=== PATIENT | male | born 1935 | race Caucasian/White ===

== ENCOUNTER 2021-09-12 10:40 | Emergency (ER) | payer MEDICARE ==
[~2021-09-12 10:40] MED LIST: Sodium Chloride 0.9% 1,000 ML BAG ONE
[2021-09-12] MEDS ORDERED: Sodium Chloride 0.9% 1,000 ML BAG ONE (11:33)
[2021-09-12 11:36] LABS: #Basophils 0.1 thou/uL (0.0-0.2); #Eosinphils 0.1 thou/uL (0.0-0.7); #Lymphocytes 0.8 thou/uL (1.20-3.40); #Monocytes 0.9 thou/uL (0.11-0.59); #Neutrophils 9.1 thou/uL (1.40-6.50); %Basophils 0.6 % (0.0-1.0); %Monocytes 7.5 % (0.0-10.0); %Neutrophils 84.9 % (42.0-75.0); Hemoglobin 14.4 g/dL (14.0-18.0); Mean Corpuscular HGB CONC 31.3 g/dL (32.0-36.0); Mean Corpuscular Hemoglobin 30.4 pg (27.0-31.0); Mean Platelet Volume 9.6 fL (7.4-10.4); Platelet Count 141 thou/uL (130-400); RBC Distribution Width 14.8 % (11.5-14.5); Red Blood Cell (RBC) Count 4.74 mill/uL (4.70-6.10); White Blood Cell (WBC) Count 10.7 thou/uL (4.8-10.8)
[2021-09-12 11:45] LABS: AST (SGOT) 57 U/L (5-34); Albumin 3.8 g/dL (3.4-4.8); Alkaline Phosphatase 98 U/L (40-110); Anion Gap 20 mmol/L (10-20); BUN (Urea Nitrogen) 32 mg/dL (8.4-25.7); Bilirubin, Total 1.5 mg/dL (0.2-1.2); Calc. Creatinine Clearance 0 mL/min (70-130); Calcium 9.3 mg/dL (7.8-10.44); Carbon Dioxide 21 mmol/L (23-31); Chloride 99 mmol/L (98-107); Glucose 116 mg/dL (83-110); Potassium 5.1 mmol/L (3.5-5.1); Protein, Total 7.8 g/dL (5.8-8.1); Sodium 135 mmol/L (136-145)
[2021-09-12 11:48] LABS: ALT (SGPT) 30 U/L (8-55)
[2021-09-12] MEDS ORDERED: Sodium Chloride 0.9% 100 ML ONE (12:11)
[2021-09-12] MEDS ORDERED: cefTRIAXone\\ROCEPHIN 2 GM VIAL ONE (12:11)
[2021-09-12] MEDS ORDERED: Sodium Chloride 0.9% 250 ML 250 ML ONE (12:25)
[2021-09-12] MEDS ORDERED: Azithromycin 500 MG VIAL ONE (12:25)
[2021-09-12] MEDS ORDERED: Dexamethasone 4 mg/ml Vial ONE (12:46)
== END 2021-09-12 13:19 | disposition short-term general hospital (02) ==
LOC: NAV ERS 10:40
DX: I21.4 Non-ST elevation (NSTEMI) myocardial infarction (principal); I95.9 Hypotension, unspecified; I50.9 Heart failure, unspecified; J44.9 Chronic obstructive pulmonary disease, unspecified; E03.9 Hypothyroidism, unspecified; I48.91 Unspecified atrial fibrillation; I25.10 Atherosclerotic heart disease of native coronary artery without angina pectoris; G47.00 Insomnia, unspecified; M19.90 Unspecified osteoarthritis, unspecified site; Z87.891 Personal history of nicotine dependence
CPT/HCPCS: 71045; 80053; 82553; 83605; 83735; 83880; 84484; 85025; 87040; 93005; 94760; 96365; 96367; 96375; J0456; J0696; J1100; J3490; J7050; J7620